=== PATIENT | female | born 1960 | race Caucasian/White ===

== ENCOUNTER 2017-01-08 02:20 | Emergency (ER) | payer MEDICAID ==
--- NOTE | 2017-01-08 02:57 | ED Physician Chart ---
ED Discharge Plan - Patient Disposition Instructions: Edema, Alcohol Intoxication, [id number] Additional Instructions: follow up with your primary medical doctor ALMA ROSA stop drinking alcoholic beverages
--- NOTE | 2017-01-08 03:02 | ED Physician Chart ---
Chief Complaint/HPI - Patient Information Date Seen:: 01/08/17 Time Seen:: 02:40 Chief Complaint:: leg pain History of Present Illness:: THIS IS A 56 YO FEMALE BIB THE [facility] IN [place] BECAUSE SHE WAS CONCERNED ABOUT HER LEGS HURTING. SHE SMELLED LIKE ALCOHOL BUT WAS ALERT AND ORIENTED TIMES FOUR. SHE STATED THAT HER LEGS WERE SWOLLEN BECAUSE OF HER CHRONIC LIVER DISEASE. SHE STATED THAT SHE A RECOVERING ALCOHOL AND OR DRUGS AND WAS CLEAN FOR 16 YEARS. SHE DENIES HEAD PAIN, CHEST PAIN AND ABDOMEN PAIN. HE ADMIT TO DRINKING ALCOHOL ON AND OFF. Vitals:: Vital Signs - 8 hr 01/08/17 02:25 Temp 98.2 F HR 77 RR 16 BP 125/72 O2 Sat % 100 Historian:: Patient Review:: Nurse's Note Reviewed, Transfer documents Reviewed Review of Systems - Review of Systems GI: Other Past Medical History - Past Medical History Obtainable: Yes Past Medical History: CAD, Asthma/COPD, Thyroid disorder, Other (LIVER FAILURE) Family History: None Social History: Smoker, Alcohol, No Drug Use Surgical History: None Physical Exam - Physical Examination General/Constitutional: Awake, Well-developed, well-nourished, Alert, No distress, GCS 15, Non-toxic appearing, Ambulatory Other Gen/Cons comments:: THE PATIENT IS ALERT AND ORIENTED TIMES THREE Head: Atraumatic Eyes: Lids, conjuctiva normal, PERRL, EOMI Skin: Nl inspection, No rash, No skin lesions, No ecchymosis, Well hydrated, No lymphadenopathy ENMT: External ears, nose nl, Nasal exam nl, Lips, teeth, gums nl Neck: Nontender, Full ROM w/o pain, No JVD, No nuchal rigidity, No bruit, No mass, No stridor Respiratory: Nl effort/Exclusion, Clear to Auscultation, No Wheeze/Rhonchi/Rales Cardio Vascular: RRR, No murmur, gallop, rubs, NL S1 S2 GI: No tenderness/rebounding/guarding, No organomegaly, No hernia, Normal BS's, Nondistended, No mass/bruits, No McBurney tenderness : No CVA tenderness Extremities: No tenderness or effusion, Full ROM, normal strength in all extremities, No edema, Normal digits & nails Other Extremities comments:: THERE WAS BILATERAL 2+ PITTING EDEMA BILATERALLY. THE RANGE OF MOTION WAS NORMAL FOR ALL FOUR EXTREMITIES. Neuro/Psych: Alert/oriented, DTR's symmetric, Normal sensory exam, Normal motor strength, Judgement/insight normal, Mood normal, Normal gait, No focal deficits Misc: normal gait, Normal back, No paraspinal tenderness Assessment - Assessment General Assessment: OK TO BOOK ED Septic Shock - . Is Septic Shock (SBP<90, OR Lactate>4 mmol\L) present?: No - <6hrs of presentation: Vital Signs: Vital Signs - 8 hr 01/08/17 02:25 Temp 98.2 F HR 77 RR 16 BP 125/72 O2 Sat % 100 Reassessment (Disposition) - Reassessment Reassessment Condition:: Improved - Diagnosis Diagnosis:: CHRONIC EDEMA TO THE LOWER LEGS - Aftercare/Follow up Instructions Aftercare/Follow-Up Instructions:: Counseled pt regarding lab results/diagnosis & need follow up, Refer to Discharge Instructions, Counseled pt & family regarding lab results/diagnosis & need follow up - Patient Disposition Discharge/Transfer:: [facility] Condition at Disposition:: Unchanged ED Discharge Plan - Patient Disposition Instructions: Edema, Alcohol Intoxication, [id number] Additional Instructions: follow up with your primary medical doctor ALMA ROSA stop drinking alcoholic beverages
== END 2017-01-08 02:50 | disposition still patient (30) ==
LOC: ER 02:20
DX: R60.0 Localized edema (principal); J45.909 Unspecified asthma, uncomplicated; J44.9 Chronic obstructive pulmonary disease, unspecified; E07.9 Disorder of thyroid, unspecified; I25.10 Atherosclerotic heart disease of native coronary artery without angina pectoris; F17.200 Nicotine dependence, unspecified, uncomplicated
CPT/HCPCS: Z7502